=== PATIENT | female | born 1950 | race Caucasian/White ===

== ENCOUNTER 2017-02-16 16:48 | Emergency (ER) | payer BC ==
[~2017-02-16] VITALS: Ht 154.9 cm; Wt 63.6 kg
[2017-02-16] MEDS ORDERED: methylPREDNISolone INJ 125 MG/2 ML VIAL (J2930) IV ONE (17:00)
[2017-02-16] MEDS ORDERED: BUPR10TASR PO ×2 (17:21)
[2017-02-16] MEDS ORDERED: zioptan OU (17:21)
[2017-02-16] MEDS ORDERED: VITA100L SL (17:21)
[2017-02-16] MEDS ORDERED: TRAZ50TA11 PO (17:21)
[2017-02-16] MEDS ORDERED: XIID5DRO OP (17:21)
[2017-02-16 20:21] VITALS: BP 129/81
== END 2017-02-16 20:37 | disposition home or self-care (01) ==
LOC: M ED 16:48
DX: R22.1 Localized swelling, mass and lump, neck (principal); T41.3X5A Adverse effect of local anesthetics, initial encounter; Z88.0 Allergy status to penicillin; Z88.4 Allergy status to anesthetic agent; Z88.8 Allergy status to other drugs, medicaments and biological substances; Z91.040 Latex allergy status

== ENCOUNTER → 2017-05-20 | Outpatient (REF) | payer BC | LOC: M LAB REF 09:37 | DX: N39.0 Urinary tract infection, site not specified (principal) | CPT/HCPCS: 87086 ==

== ENCOUNTER → 2018-11-21 | Outpatient (CLI) | payer BC ==
[~2018-11-21] MED LIST: BUPR10TASR PO; TRAZ-252 PO; VITA100L SL; XIID5DRO OP; zioptan OU
[2018-11-21 16:47] LABS: BASO # 0.1 10^3/uL (0.0-0.2); BASO % 0.7 % (0.0-1.0); EOS # 0.1 10^3/uL (0.0-0.5); EOS % 1.1 % (0.0-3.0); HEMATOCRIT 39.7 % (36.0-47.0); HEMOGLOBIN 13.3 g/dl (12.0-15.5); LYMPH # 2.5 10^3/uL (1.5-5.0); LYMPH % 32.8 % (24.0-44.0); MEAN CORPUSCULAR HEMOGLOBIN 32.4 pg (27.0-33.0); MEAN CORPUSCULAR HGB CONC 33.5 g/dl (32.0-36.5); MEAN CORPUSCULAR VOLUME 96.8 fl (80.0-96.0); MONO # 0.6 10^3/uL (0.0-0.8); MONO % 7.8 % (0.0-5.0); NEUTROPHILS # 4.3 10^3/uL (1.5-8.5); NEUTROPHILS % 57.3 % (36.0-66.0); PLATELET COUNT, AUTOMATED 355 10^3/uL (150-450); WHITE BLOOD COUNT 7.5 10^3/uL (4.0-10.0)
[2018-11-21 17:16] LABS: ALT/SGPT 35 U/L (12-78); BILIRUBIN,TOTAL 0.5 MG/DL (0.2-1.0); BLOOD UREA NITROGEN 10 MG/DL (7-18); C REACTIVE PROTEIN QUANTITATIV 0.42 MG/DL (0.00-0.30); CALCIUM LEVEL 9.8 MG/DL (8.8-10.2); CARBON DIOXIDE LEVEL 27 MEQ/L (21-32); CHLORIDE LEVEL 103 MEQ/L (98-107); CREATININE FOR GFR 0.84 MG/DL (0.55-1.30); GLOMERULAR FILTRATION RATE > 60.0 (>45); GLUCOSE, FASTING 88 MG/DL (70-100); POTASSIUM SERUM 4.1 MEQ/L (3.5-5.1); RHEUMATOID FACTOR QUANT < 10.0 IU/ML (<15.0); SODIUM LEVEL 141 MEQ/L (136-145); TOTAL PROTEIN 7.1 GM/DL (6.4-8.2)
[2018-11-21 17:53] LABS: ERYTHROCYTE SEDIMENTATION RATE 18 mm/hr (0-30)
--- NOTE | 2018-11-22 08:23 | REP ---
BILATERAL HAND SERIES: Four views of each hand performed. No acute fracture or dislocation is seen. On the left, there is moderate narrowing with subchondral sclerosis at the joint between the scaphoid and adjacent trapezium and trapezoid bones. There is mild narrowing and spurring at the joint between the trapezium and base of 1st metacarpal with subchondral sclerosis as well. There is mild diffuse narrowing of the proximal and distal interphalangeal joints. On the right, there is moderate narrowing with subchondral sclerosis at the joint between the scaphoid and adjacent trapezium and trapezoid bones. There is mild diffuse narrowing of the 2nd through 5th distal interphalangeal joints. IMPRESSION: Relatively mild arthritic changes, as above. Electronically Signed by Dale Rodriguez MD 11/23/2018 10:45 A
--- NOTE | 2018-11-22 08:26 | REP ---
BILATERAL FEET: Four views of each foot performed. No acute fracture or dislocation is seen. On the right as well as on the left, there is mild narrowing, subchondral sclerosis, and spurring at the joint between the sesamoid bones and adjacent distal 1st metatarsal. Mild joint space narrowing and subchondral sclerosis is seen symmetrically at the 1st metatarsophalangeal joint. There appears to be an old fracture at the tip of the lateral malleolus on the left. Very small dorsal navicular spurs are seen bilaterally. There is mild narrowing of the 2nd through 5th proximal and distal interphalangeal joints. IMPRESSION: Mild bilateral degenerative changes as above. Electronically Signed by Dale Rodriguez MD 11/23/2018 10:46 A
== END ==
LOC: M LAB 15:26
PROVIDERS: ATTEND Internal Medicine Rheumatology
DX: M19.041 Primary osteoarthritis, right hand (principal); M19.042 Primary osteoarthritis, left hand; M19.071 Primary osteoarthritis, right ankle and foot; M19.072 Primary osteoarthritis, left ankle and foot

== ENCOUNTER → 2018-11-25 | Outpatient (CLI) | payer BC ==
[2018-11-29 00:06] LABS: ANA (HEP2) Negative (.); CYCLIC CITRULLINATED PEPTIDE 76 units (0-19)
== END ==
LOC: M LAB 16:48
PROVIDERS: ATTEND Internal Medicine Rheumatology
DX: R76.8 Other specified abnormal immunological findings in serum (principal)

== ENCOUNTER → 2018-11-28 | Outpatient (REF) | payer BC ==
[2018-11-28 20:28] LABS: APPEARANCE, URINE MANUAL HAZY (CLEAR); BILIRUBIN, URINE MANUAL OBSCURED (NEGATIVE); BLOOD URINE MANUAL OBSCURED (NEGATIVE); COLOR, URINE MANUAL ORANGE (YELLOW); GLUCOSE, URINE (UA) MANUAL OBSCURED mg/dL (NEGATIVE); KETONE, URINE MANUAL OBSCURED mg/dL (NEGATIVE); LEUKOCYTE ESTERASE, URINE MAN OBSCURED (NEGATIVE); NITRITE, URINE MANUAL OBSCURED (NEGATIVE); PH,URINE MAN OBSCURED UNITS (5.0 - 7.0); PROTEIN, URINE MANUAL OBSCURED mg/dL (NEGATIVE); UROBILINOGEN, URINE MANUAL OBSCURED mg/dl (NORMAL)
[2018-11-28 20:31] LABS: RBC, URINE NONE SEEN /hpf (0-3); SQUAMOUS EPITHELIAL CELL URINE NONE SEEN /hpf (SMALL AMT)
[2018-11-28 20:32] LABS: BACTERIA, URINE SMALL AMOUNT; CALCIUM OXALATE CRYSTALS,URINE LARGE AMOUNT /hpf; HYALINE CAST, URINE NONE SEEN /lpf (0-1); URIC ACID CRYSTALS, URINE SMALL AMOUNT /hpf
== END ==
LOC: M LAB REF 19:14
PROVIDERS: ATTEND Physician Assistant Medical
DX: N39.0 Urinary tract infection, site not specified (principal)

== ENCOUNTER → 2019-01-13 | Outpatient (CLI) | payer BC ==
--- NOTE | 2019-01-13 14:24 | REP ---
Clinical: Trauma. Technique: Frontal view of the chest with multiple views of the right hemithorax. Findings: Frontal view of the chest demonstrates no acute cardiopulmonary process. Multiple views of the right hemithorax demonstrates no obvious acute rib fracture or pathology. Impression: Normal right rib series Electronically Signed by Landry Mckeon MD 01/13/2019 02:16 P
== END ==
LOC: M RAD 13:44
PROVIDERS: ATTEND Family Medicine
DX: R07.9 Chest pain, unspecified (principal)

== ENCOUNTER → 2019-03-06 | Outpatient (CLI) | payer BC ==
[2019-03-06 14:04] LABS: HEMATOCRIT 41.5 % (36.0-47.0); HEMOGLOBIN 13.8 g/dl (12.0-15.5); MEAN CORPUSCULAR HEMOGLOBIN 33.3 pg (27.0-33.0); MEAN CORPUSCULAR HGB CONC 33.3 g/dl (32.0-36.5); MEAN CORPUSCULAR VOLUME 100.2 fl (80.0-96.0); PLATELET COUNT, AUTOMATED 356 10^3/uL (150-450); RED BLOOD COUNT 4.14 10^6/uL (4.00-5.40); WHITE BLOOD COUNT 7.1 10^3/uL (4.0-10.0)
[2019-03-06 14:35] LABS: ALBUMIN 3.7 GM/DL (3.2-5.2); ALT/SGPT 24 U/L (12-78); BILIRUBIN,TOTAL 0.5 MG/DL (0.2-1.0); BLOOD UREA NITROGEN 14 MG/DL (7-18); CALCIUM LEVEL 9.2 MG/DL (8.8-10.2); CARBON DIOXIDE LEVEL 27 MEQ/L (21-32); CHLORIDE LEVEL 108 MEQ/L (98-107); CHOLESTEROL LEVEL 238 MG/DL (<200); CHOLESTEROL RISK RATIO 4.175 (<5); CREATININE FOR GFR 0.84 MG/DL (0.55-1.30); FREE T3 2.8 PG/ML (2.2-4.0); FREE T4 1.15 NG/DL (0.76-1.46); GLOMERULAR FILTRATION RATE > 60.0 (>45); GLUCOSE, FASTING 99 MG/DL (70-100); HDL CHOLESTEROL 57 MG/DL (>40); LDL CHOLESTEROL 158 MG/DL (<100); NON-HDL-C 181 MG/DL; POTASSIUM SERUM 4.1 MEQ/L (3.5-5.1); SODIUM LEVEL 141 MEQ/L (136-145); TRIGLYCERIDES LEVEL 114 MG/DL (<150)
== END ==
LOC: M LAB 13:05
PROVIDERS: ATTEND Family Medicine
DX: Z13.220 Encounter for screening for lipoid disorders (principal); E03.9 Hypothyroidism, unspecified; K90.0 Celiac disease

== ENCOUNTER 2020-05-01 15:25 | Emergency (ER) | payer BC ==
[~2020-05-01] VITALS: Ht 152.4 cm; Wt 72.4 kg
--- OUTSIDE RECORDS SUMMARY | 2020-05-01 15:31 | CCD ---
Author Author [facility] Organization [facility] Address Unknown Phone Unavailable Support Name Relationship Address Phone SELF EMPLOYED [place] [address] UE Next Of Kin Unknown Unavailable [place] Next Of Kin [address] [place], [place] [id number] Re-disclosure Warning The records that you are about to access may contain information from federally-assisted alcohol or drug abuse programs. If such information is present, then the following federally mandated warning applies: This information has been disclosed to you from records protected by federal confidentiality rules (42 CFR part 2). The federal rules prohibit you from making any further disclosure of this information unless further disclosure is expressly permitted by the written consent of the person to whom it pertains or as otherwise permitted by 42 CFR part 2. A general authorization for the release of medical or other information is NOT sufficient for this purpose. The Federal rules restrict any use of the information to criminally investigate or prosecute any alcohol or drug abuse patient.The records that you are about to access may contain highly sensitive health information, the redisclosure of which is protected by Article 27-F of the [facility] Public Health law. If you continue you may have access to information: Regarding HIV / AIDS; Provided by facilities licensed or operated by the [facility] Office of Mental Health; or Provided by the [facility] Office for People With Developmental Disabilities. If such information is present, then the following [facility] mandated warning applies: This information has been disclosed to you from confidential records which are protected by state law. State law prohibits you from making any further disclosure of this information without the specific written consent of the person to whom it pertains, or as otherwise permitted by law. Any unauthorized further disclosure in violation of state law may result in a fine or senior living sentence or both. A general authorization for the release of medical or other information is NOT sufficient authorization for further disc losure. Family History Family Member Name Family Member Gender Family Member Status Date o f Status Description Data Source(s) Unknown Unknown Problem [facility] ([facility]) Medications Medication Brand Name Start Date Product Form Dose Route Admi nistrative Instructions Pharmacy Instructions Status Indications Reaction Description Data Source(s) Prazosin 1 MG Oral Capsule prazosin (MINIPRESS) 1 MG c apsule prazosin (MINIPRESS) 1 MG capsule 10/14/2018 12:00:00 AM EDT 3 mg Oral active Take 3 capsules by mouth [facility] Insurance Providers Payer name Policy type / Coverage type Policy ID Covered green party ID Covered green party's relationship to sylvester Policy Sylvester Plan Information [employer] [place]/307 [id number] FR2 [id number] EXCELLUS BCBS B [id number] P YND [id number] EXCELLUS BCBS B [id number] P YND [id number] EXCELLUS H [id number] Unkn [id number] EXCELLUS H [id number] [facility] [id number] BCBS/Excellus Commercial [id number] YN [id number] [employer] [place] PPO 302/307 [id number] FR2 [id number] [place] [place] 302/307 [id number] FR2 [id number] [facility] UNAVAILABLE UNAVAILABLE EXCELLUS BCBS B [id number] S [id number] EXCELLUS BCBS B [id number] S YNS [id number] Blue Cross Blue Shield P [id number] OTHER [id number] Blue Cross Blue Shield P [id number] SELF [id number] EXCELLUS BCBS P [id number] P [id number] [id number] EXCELLUS BCBS P [id number] S [id number] [id number] [employer] [place] P[place] 302/307 [id number] FR2 [id number] Results ID Date Data Source [id number] 10/31/2019 12:00:00 AM EDT [facility] Jose Davila MD Patient Name: SHON CABRERA [facility] Date of : 1950 Date of Exam: 10/31/2019VetoMAKENZIE [id number]#: Fax: [phone] EXAM: KNEE RIGHT (COMPLETE) X-RAYCLINICAL INFORMATION: Pain.Five views. These images were obtained using digital radiography.Comparison right knee AP and lateral views of 03/24/2012.The compartments are symmetric and well maintained. There is no acutefracture or destructive osseous lesion.No significant change compared to the prior exam.TIM Butler/Ana you for referring BRIELLE CABRERA to our office. Electronically Signed - ELLIOTT CALVIN DO 11/02/19 11:33 Name Value Range Interpretation Code Description Data Lavern rce(s) Supporting Document(s) ID Date Data Source [id number] 10/31/2019 12:00:00 AM EDT [facility] Jose Davila MD Patient Name: SHON CABRERA [facility] Date of : 1950 Date of Exam: 10/31/2019WaterMAKENZIE kuhn [id number]#: Fax: [phone] EXAM: KNEE LEFT (COMPLETE) X-RAYCLINICAL INFORMATION: Chronic pain. No trauma.Comparison, standing bilateral AP views of the knees 03/24/2012.Five views. These images were obtained using digital radiography.There is minimal tricompartmental marginal osteophytosis. The compartmentsare symmetric and well maintained. There is no acute fracture,dislocation, or subluxation.IMPRESSION:Minimal degenerative changes.TIM Butler/Ana you for referring BRIELLE CABRERA to our office. Electronically Signed - ELLIOTT CALVIN DO 11/02/19 11:33 Name Value Range Interpretation Code Description Data Lavern rce(s) Supporting Document(s) ID Date Data Source [id number] 10/31/2019 12:00:00 AM EDT [facility] Lakeshia Bassett MD Patient Name: FLOR CABRERA [place] Date of : 1950te 2c Date of Exam: 10/31/2019MAKENZIE BANEGAS [id number]#: Fax: [phone] EXAM: MAMMO SCREENING WITH CADCLINICAL INFORMATION: Screening.Based on the personal and family history information your patient suppliedat the time of imaging, her lifetime risk of breast cancer estimated by theTyrer-Cuzick model is 2.9%. Given that this patient has less than 20% TCrisk score, no further medical management is currently recommended at thistime.Digital screening (2D) mammography was performed bilaterally in the CC andMLO projections. Additionally, breast tomosynthesis (3D mammography) wasperformed bilaterally in the CC and MLO projections. Today's exam wascompared to the prior exam(s).By history, the patient has no complaints of a palpable breast abnormalityor other significant breast complaints.The patient states last clinical breast exam was in November of 2018.The breasts are unchanged in size and shape. There are no deyanira-soft tissuedensities or spiculated masses. There is no internal architecturaldistortion. There are no suspicious deyanira-calcific clusters. Skinthickening or nipple retraction is not present.The Volpara volumetric breast density category is B, there are scatteredareas of fibroglandular density.IMPRESSION:BI-RADS Category 1 - Negative Mammogram. Stable mammogram. There is noevidence of malignant alteration of the breasts. Followup examinationrecommended in one year.This mammogram was read with the assistance of [employer], an FDAapproved computer aided detection system for mammography.Negative x-ray reports should not delay surgical consultation if a dominantor clinically suspicious mass is present.Not all breast cancers can be identified by mammography. Therefore, werecommend that you continue to perform regular breast self-examination andphysical examination and then promptly contact your physician of anyconcerns or changes.Adenosis and dense breasts may obscure an underlying neoplasm.TIM Butler/Ana you for referring BRIELLE CABRERA to our office. Electronically Signed - ELLIOTT CALVIN DO 11/08/19 15:02 Name Value Range Interpretation Code Description Data Lavern rce(s) Supporting Document(s) Procedure Patient Treatment Plan of Care Planned Activity Planned Date Details Description Data Source (s) Prazosin 1 MG Oral Capsule 10/14/2018 12:00:00 AM [facility]
[2020-05-01] MEDS ORDERED: SYNT50TA (15:53)
[2020-05-01] MEDS ORDERED: TRAM50TA2 (15:53)
[2020-05-01] MEDS ORDERED: DERM1TAB2 PO (15:53)
[2020-05-01] MEDS ORDERED: MULTTAB61 PO (15:53)
[2020-05-01] MEDS ORDERED: NS 1,000 ML IV ONE (16:15)
--- OUTSIDE RECORDS SUMMARY | 2020-05-01 17:16 | CCD ---
Author Author [facility] Organization [facility] Address Unknown Phone Unavailable Support Name Relationship Address Phone SELF EMPLOYED [place] [address] UE Next Of Kin Unknown Unavailable CL[place] GARCIA Next Of Kin [address] [place], [place] [phone] Re-disclosure Warning The records that you are [...] is protected by Article 27-F of the [facility] Public Health law. If you continue you may have access to information: Regarding HIV / AIDS; Provided by facilities licensed or operated by the [facility] Office of Mental Health; or Provided by the [facility] Office for People With Developmental Disabilities. If such information is present, then the following [facility] mandated warning applies: This information has [...] law may result in a fine or long term sentence or both. A general authorization for [...] Oral active Take 3 capsules by mouth [facility] Insurance Providers Payer name Policy type / Coverage type Policy ID Covered green party ID Covered green party's relationship to sylvester Policy Sylvester Plan Information [employer] [place] 302/307 [id number] FR2 [id number] EXCELLUS BCBS B [id number] P YND [id number] EXCELLUS BCBS B [id number] P YND [id number] EXCELLUS H [id number] Unkn [id number] EXCELLUS H [id number] [facility] [id number] BCBS/Excell[employer] Commercial [id number] YN [id number] [place] PPO 302/307 [id number] FR2 [id number] [employer] [place] 302/307 [id number] FR2 [id number] [facility] UNAVAILABLE UNAVAILABLE EXCELLUS BCBS B [id number] S [id number] [id number] EXCELLUS BCBS B [id number] S YNS [id number] Blue Cross Blue Shield P [id number] OTHER [id number] Blue Cross Blue Shield P [id number] SELF [id number] EXCELLUS BCBS P [id number] P YND [id number] EXCELLUS BCBS P [id number] S [id number] [id number] [employer] [place] PPO 302/307 [id number] FR2 [id number] Results ID Date Data Source [id number] 10/31/2019 12:00:00 AM EDT [facility] Jose Davila MD Patient Name: SHON CABRERA [facility] Date of : 1950 Date of Exam: 10/31/2019VetoMAKENZIE [id number]#: Fax: [phone] EXAM: KNEE RIGHT (COMPLETE) X-RAYCLINICAL [...] rce(s) Supporting Document(s) ID Date Data Source [id number] 10/31/2019 12:00:00 AM EDT [facility] Jose Davila MD Patient Name: SHON CABRERA [facility] Date of : 1950 Date of Exam: 10/31/2019WaterMAKENZIE kuhn [id number]#: Fax: [phone] EXAM: KNEE LEFT (COMPLETE) X-RAYCLINICAL [...] rce(s) Supporting Document(s) ID Date Data Source [id number] 10/31/2019 12:00:00 AM EDT [facility] Lakeshia Bassett MD Patient Name: FLOR CABRERA [place] Date of : 1950te 2c Date of Exam: 10/31/2019MAKENZIE BANEGAS [id number]#: Fax: [phone] EXAM: MAMMO SCREENING WITH CADCLINICAL [...] mammogram was read with the assistance of [employer], an FDAapproved computer aided detection system for [...] 1 MG Oral Capsule 10/14/2018 12:00:00 AM [facility]
[2020-05-01 17:18] LABS: BASO % 0.3 % (0.0-1.0); EOS # 0.1 10^3/uL (0.0-0.5); EOS % 0.4 % (0.0-3.0); HEMATOCRIT 46.9 % (36.0-47.0); HEMOGLOBIN 15.3 g/dl (12.0-15.5); MEAN CORPUSCULAR HEMOGLOBIN 31.7 pg (27.0-33.0); MEAN CORPUSCULAR HGB CONC 32.6 g/dl (32.0-36.5); MEAN CORPUSCULAR VOLUME 97.3 fl (80.0-96.0); MONO # 0.7 10^3/uL (0.0-0.8); MONO % 5.6 % (2.0-8.0); NEUTROPHILS % 70.2 % (36.0-66.0); PLATELET COUNT, AUTOMATED 407 10^3/uL (150-450); RED BLOOD COUNT 4.82 10^6/uL (4.00-5.40); WHITE BLOOD COUNT 12.9 10^3/uL (4.0-10.0)
[2020-05-01 17:39] LABS: ALBUMIN 4.2 GM/DL (3.2-5.2); BILIRUBIN,DIRECT 0.2 MG/DL (0.0-0.2); BILIRUBIN,TOTAL 0.7 MG/DL (0.2-1.0); TOTAL PROTEIN 8.4 GM/DL (6.4-8.2)
[2020-05-01] MEDS ORDERED: ISOVUE-370 76% 100ML VIAL As Ordered ONE (17:39)
--- NOTE | 2020-05-01 18:14 | REPVR ---
PROCEDURE INFORMATION: Exam: CT Abdomen And Pelvis With Contrast Exam date and time: 05/01/2020 5:48 PM Age: 69 years old Clinical indication: Abdominal pain; Localized; Left; Additional info: Luq, llq pain diarrhea, severe cramping TECHNIQUE: Imaging protocol: Computed tomography of the abdomen and pelvis with contrast. Radiation optimization: All CT scans at this facility use at least one of these dose optimization techniques: automated exposure control; mA and/or kV adjustment per patient size (includes targeted exams where dose is matched to clinical indication); or iterative reconstruction. Contrast material: ISOVUE 370; Contrast volume: 100 ml; Contrast route: INTRAVENOUS (IV); COMPARISON: No relevant prior studies available. FINDINGS: Liver: There are cysts in the liver measuring up to 2 cm located in segment 2 of the left lobe. No complex features demonstrated. No follow-up suggested. Liver otherwise unremarkable. Gallbladder and bile ducts: Normal. No calcified stones. No ductal dilation. Pancreas: Normal. No ductal dilation. Spleen: Normal. No splenomegaly. Adrenal glands: Normal. No mass. Kidneys and ureters: Normal. No hydronephrosis. Stomach and bowel: Inflammation demonstrated along the lateral margin of the ascending colon likely representing right colonic uncomplicated diverticulitis. A 2nd focus of acute or subacute inflammation is demonstrated at the junction of the distal descending and sigmoid colon consistent with localized uncomplicated diverticulitis. No drainable abscess demonstrated in either location. Appendix: No evidence of appendicitis. Intraperitoneal space: Unremarkable. No free air. No significant fluid collection. Vasculature: The aortoiliac vessels demonstrate mild atherosclerotic calcification. Lymph nodes: Unremarkable. No enlarged lymph nodes. Urinary bladder: Unremarkable as visualized. Reproductive: Unremarkable as visualized. Bones/joints: Age indeterminate compression deformity at L1. Mild central spinal stenosis L3-L4, severe central spinal stenosis L4-L5. Dextroscoliosis. Soft tissues: Unremarkable. IMPRESSION: 1. There are cysts in the liver measuring up to 2 cm located in segment 2 of the left lobe. No complex features demonstrated. No follow-up suggested. Liver otherwise unremarkable. 2. Inflammation demonstrated along the lateral margin of the ascending colon likely representing right colonic uncomplicated diverticulitis. A 2nd focus of acute or subacute inflammation is demonstrated at the junction of the distal descending and sigmoid colon consistent with localized uncomplicated diverticulitis. No drainable abscess demonstrated in either location. Electronically signed by: Charanjit Bangura On 05/01/2020 18:14:25 PM
[2020-05-01] MEDS ORDERED: CIPR-249 PO (18:23)
[2020-05-01] MEDS ORDERED: FLAG500T PO (18:23)
[2020-05-01 18:30] VITALS: BP 149/82
== END 2020-05-01 18:41 | disposition home or self-care (01) ==
LOC: M ED 15:25
DX: K57.32 Diverticulitis of large intestine without perforation or abscess without bleeding (principal); K76.89 Other specified diseases of liver; E03.9 Hypothyroidism, unspecified; M79.7 Fibromyalgia; H10.829 Rosacea conjunctivitis, unspecified eye; K90.0 Celiac disease; Z86.010 Personal history of colon polyps; Z79.899 Other long term (current) drug therapy; Z88.0 Allergy status to penicillin; Z88.8 Allergy status to other drugs, medicaments and biological substances; Z91.040 Latex allergy status
CPT/HCPCS: 74177; 80047; 80076; 83605; 83690; 85025; 87040; 96360; 99284; Q9967

== ENCOUNTER → 2020-07-08 | Outpatient (CLI) | payer BC ==
[~2020-07-08] MED LIST changes: +CIPR-249 PO; +DERM1TAB2 PO; +FLAG500T PO; +MULTTAB61 PO; +SYNT50TA; +TRAM50TA2
--- NOTE | 2020-07-08 21:50 | REPVR ---
PROCEDURE INFORMATION: Exam: MR Lumbar Spine Without Contrast Exam date and time: 07/08/2020 7:39 PM Age: 70 years old Clinical indication: Pain; Lumbago with sciatica; Left; Additional info: Radiculopathy sciatic lesion of nerve TECHNIQUE: Imaging protocol: Multiplanar magnetic resonance images of the lumbar spine without intravenous contrast. COMPARISON: No relevant prior studies available. FINDINGS: Vertebrae: T1 weighted images demonstrate mottled decreased signal throughout the vertebrae, findings which can be seen in association with chronic anemia or other myeloproliferative abnormality. This should be correlated with clinical evaluation. Prominent Schmorl's node indents the inferior endplate of L1. Abnormal signal demonstrated in the mid and posterior aspect of L1 may indicate marrow edema secondary to a acute or subacute injury. Marrow space edema demonstrated in the posterosuperior aspect of L2 consistent with acute or subacute injury. Spinal cord: Normal signal. No cord compression. L1-L2: Diffusely bulging annulus L1-L2. No spinal stenosis. Moderate bilateral facet joint arthropathy with fluid in the right facet joint may indicate synovitis. L2-L3: Mild annular bulge L2-L3. No spinal stenosis. Mild bilateral facet joint arthropathy. L3-L4: Diffusely bulging annulus L3-L4 with mild flattening of the thecal sac. No significant spinal stenosis. Moderate bilateral facet joint arthropathy. L4-L5: There is a moderate to severe degenerative central spinal stenosis at L4-L5 secondary to diffuse annular bulging, thickened ligamentum flavum with marked bilateral facet joint arthropathy. L5-S1: Bulging annulus L5-S1. No significant spinal stenosis. Severe bilateral facet joint arthropathy. Soft tissues: Unremarkable. IMPRESSION: 1. T1 weighted images demonstrate mottled decreased signal throughout the vertebrae, findings which can be seen in association with chronic anemia or other myeloproliferative abnormality. This should be correlated with clinical evaluation. 2. Prominent Schmorl's node indents the inferior endplate of L1. Abnormal signal demonstrated in the mid and posterior aspect of L1 may indicate marrow edema secondary to a acute or subacute injury. 3. Marrow space edema demonstrated in the posterosuperior aspect of L2 consistent with acute or subacute injury. 4. Discogenic degenerative changes from L1-L2 to L5-S1 with a moderate to severe central spinal stenosis at L4-L5. Multilevel bilateral facet joint arthropathy. 5. Possible right-sided facet synovitis at L1-L2. Electronically signed by: Charanjit Bangura On 07/08/2020 21:50:41 PM
--- NOTE | 2020-07-09 09:24 | REP ---
INDICATION: RADICULOPATHY SCIATIC LESION OF NERVE. Attention left piriformis muscle. COMPARISON: Comparison is made with CT imaging from May 01, 2020. TECHNIQUE: Axial, sagittal, and coronal imaging planes utilized. T1 and T2 weighted sequences are included with and without fat saturation.. FINDINGS: Cortical and medullary bone signal intensity are normal in the bony pelvis, sacrum, and proximal femurs. There is degenerative disc disease at L4-5 and L5-S1 with disc space narrowing and some diffuse disc bulging. The SI joints are unremarkable. There is no evidence of sacroiliitis, erosive change, or ankylosis. No sacral destructive lesion is seen. No coccygeal displacement or abnormality. The pre sacral and the dorsal retro sacral soft tissues are unremarkable. The uterus is normal in size slightly retro vertically. There are nabothian cysts in the cervix. No ovarian abnormality is observed on either side. Normal appendix is seen in the right lower quadrant. No inflammatory changes are seen adjacent to bowel loops as visualized today. There is mild sigmoid colon diverticulosis. No free fluid pelvic mass or adenopathy is appreciated. The piriformis muscles are normal in size, distribution, and signal intensity. Sciatic nerves intrapelvic and extrapelvic soft tissues are otherwise unremarkable. Are normal and symmetric as visualized. No evidence of abnormal spurring or other mass effect to suggest compression or displacement. IMPRESSION: Mild sigmoid colon diverticulosis. Otherwise unremarkable pelvic MRI study. <Electronically signed by Francisco Bolton > 07/09/20 [id number]
== END ==
LOC: M RAD 18:37
PROVIDERS: ATTEND Family Medicine
DX: G57.00 Lesion of sciatic nerve, unspecified lower limb (principal); M48.07 Spinal stenosis, lumbosacral region; M51.46 Schmorl's nodes, lumbar region

== ENCOUNTER → 2020-07-10 | Outpatient (CLI) | payer BC ==
[2020-07-10 11:50] LABS: HEMATOCRIT 42.4 % (36.0-47.0); HEMOGLOBIN 14.2 g/dl (12.0-15.5); MEAN CORPUSCULAR HEMOGLOBIN 32.5 pg (27.0-33.0); MEAN CORPUSCULAR HGB CONC 33.5 g/dl (32.0-36.5); PLATELET COUNT, AUTOMATED 335 10^3/uL (150-450); RED BLOOD COUNT 4.37 10^6/uL (4.00-5.40); WHITE BLOOD COUNT 6.6 10^3/uL (4.0-10.0)
[2020-07-10 12:22] LABS: BLOOD UREA NITROGEN 15 MG/DL (7-18); CALCIUM LEVEL 9.7 MG/DL (8.8-10.2); CARBON DIOXIDE LEVEL 29 MEQ/L (21-32); CHLORIDE LEVEL 107 MEQ/L (98-107); GLOMERULAR FILTRATION RATE > 60.0 (>39); GLUCOSE, FASTING 91 MG/DL (70-100); IRON (FE) 82 UG/DL (50-170); PERCENT SATURATION 35.8 % (13.2-45.0); POTASSIUM SERUM 4.1 MEQ/L (3.5-5.1); SODIUM LEVEL 141 MEQ/L (136-145); TOTAL IRON BINDING CAPACITY 229 UG/DL (250-450)
[2020-07-10 12:25] LABS: PTH INTACT 53.1 PG/ML (18.5-88.0)
[2020-07-10 12:26] LABS: FOLATE > 24.0 NG/ML; VITAMIN B12 LEVEL 680 PG/ML
[2020-07-11 18:07] LABS: ANTI-MITOCHONDRIAL ANTIBODY <20.0 Units (0.0-20.0); TISSUE TRANSGLUTAMINASE IgA <2 U/mL (0-3); UNITSIGA FOR GLIADIN IGA 7 units (0-19); UNITSIGG FOR GLIADIN IGG 6 units (0-19)
== END ==
LOC: M LAB 10:59
DX: R94.5 Abnormal results of liver function studies (principal); K90.0 Celiac disease; E83.52 Hypercalcemia

== ENCOUNTER → 2020-07-10 | Outpatient (CLI) | payer BC ==
[2020-07-10 11:50] LABS: HEMATOCRIT 42.6 % (36.0-47.0); HEMOGLOBIN 14.3 g/dl (12.0-15.5); MEAN CORPUSCULAR HEMOGLOBIN 32.4 pg (27.0-33.0); MEAN CORPUSCULAR HGB CONC 33.6 g/dl (32.0-36.5); MEAN CORPUSCULAR VOLUME 96.4 fl (80.0-96.0); PLATELET COUNT, AUTOMATED 347 10^3/uL (150-450); RED BLOOD COUNT 4.42 10^6/uL (4.00-5.40); WHITE BLOOD COUNT 6.7 10^3/uL (4.0-10.0)
[2020-07-10 12:32] LABS: ALBUMIN 3.9 GM/DL (3.2-5.2); ALT/SGPT 22 U/L (12-78); BILIRUBIN,TOTAL 0.4 MG/DL (0.2-1.0); BLOOD UREA NITROGEN 15 MG/DL (7-18); CALCIUM LEVEL 9.7 MG/DL (8.8-10.2); CARBON DIOXIDE LEVEL 29 MEQ/L (21-32); CHLORIDE LEVEL 107 MEQ/L (98-107); CHOLESTEROL LEVEL 241 MG/DL (<200); CHOLESTEROL RISK RATIO 4.016 (<5); CREATININE FOR GFR 0.66 MG/DL (0.55-1.30); FREE T3 2.8 PG/ML (2.2-4.0); FREE T4 1.29 NG/DL (0.76-1.46); GLOMERULAR FILTRATION RATE > 60.0 (>39); GLUCOSE, FASTING 90 MG/DL (70-100); HDL CHOLESTEROL 60 MG/DL (>40); LDL CHOLESTEROL 164 MG/DL (<100); NON-HDL-C 181 MG/DL; SODIUM LEVEL 141 MEQ/L (136-145); TRIGLYCERIDES LEVEL 87 MG/DL (<150)
== END ==
LOC: M LAB 11:04
PROVIDERS: ATTEND Family Medicine
DX: E78.5 Hyperlipidemia, unspecified (principal)

== ENCOUNTER → 2020-11-04 | Outpatient (CLI) | payer BC ==
[2020-11-04 13:55] LABS: BASO % 0.5 % (0.0-1.0); EOS % 0.5 % (0.0-3.0); HEMATOCRIT 40.7 % (36.0-47.0); HEMOGLOBIN 13.6 g/dl (12.0-15.5); LYMPH # 2.9 10^3/uL (1.5-5.0); LYMPH % 37.9 % (24.0-44.0); MEAN CORPUSCULAR HEMOGLOBIN 32.2 pg (27.0-33.0); MEAN CORPUSCULAR HGB CONC 33.4 g/dl (32.0-36.5); MEAN CORPUSCULAR VOLUME 96.4 fl (80.0-96.0); MONO # 0.5 10^3/uL (0.0-0.8); MONO % 5.9 % (2.0-8.0); NEUTROPHILS # 4.2 10^3/uL (1.5-8.5); NEUTROPHILS % 55.1 % (36.0-66.0); PLATELET COUNT, AUTOMATED 333 10^3/uL (150-450); RED BLOOD COUNT 4.22 10^6/uL (4.00-5.40); WHITE BLOOD COUNT 7.6 10^3/uL (4.0-10.0)
[2020-11-04 14:23] LABS: ALBUMIN 3.7 GM/DL (3.2-5.2); ALT/SGPT 22 U/L (12-78); BILIRUBIN,TOTAL 0.6 MG/DL (0.2-1.0); BLOOD UREA NITROGEN 12 MG/DL (7-18); CALCIUM LEVEL 9.3 MG/DL (8.8-10.2); CARBON DIOXIDE LEVEL 29 MEQ/L (21-32); CHLORIDE LEVEL 106 MEQ/L (98-107); CHOLESTEROL LEVEL 242 MG/DL (<200); CHOLESTEROL RISK RATIO 3.226 (<5); CREATININE FOR GFR 0.66 MG/DL (0.55-1.30); GLOMERULAR FILTRATION RATE > 60.0 (>39); GLUCOSE, FASTING 87 MG/DL (70-100); HDL CHOLESTEROL 75 MG/DL (>40); LDL CHOLESTEROL 151 MG/DL (<100); MAGNESIUM LEVEL 2.1 MG/DL (1.8-2.4); NON-HDL-C 167 MG/DL; POTASSIUM SERUM 4.3 MEQ/L (3.5-5.1); SODIUM LEVEL 140 MEQ/L (136-145); TOTAL PROTEIN 6.9 GM/DL (6.4-8.2); TRIGLYCERIDES LEVEL 79 MG/DL (<150)
[2020-11-04 14:26] LABS: VITAMIN B12 LEVEL 579 PG/ML (247-911)
== END ==
LOC: M LAB 12:40
PROVIDERS: ATTEND Family Medicine
DX: K90.0 Celiac disease (principal); E78.2 Mixed hyperlipidemia

== ENCOUNTER → 2021-01-01 | Outpatient (CLI) | payer BC | LOC: M LABSMTC 10:09 | PROVIDERS: ATTEND Internal Medicine Gastroenterology | DX: Z01.812 Encounter for preprocedural laboratory examination (principal); Z20.822 Contact with and (suspected) exposure to COVID-19 ==

== ENCOUNTER → 2021-12-09 | Outpatient (REF) | payer BC | LOC: M LAB REF 12:10 | PROVIDERS: ATTEND Student in an Organized Health Care Education/Training Program | DX: R30.0 Dysuria (principal) ==

== ENCOUNTER → 2022-01-12 | Outpatient (CLI) | payer BC | LOC: M WHC 10:48 | PROVIDERS: ATTEND Family Medicine | DX: R10.2 Pelvic and perineal pain (principal); D25.9 Leiomyoma of uterus, unspecified ==

== ENCOUNTER → 2022-02-10 | Outpatient (CLI) | payer BC ==
[~2022-02-10] MED LIST changes: +GASTROGRAFIN SOLUTION 30ML As Ordered ONE; +ISOVUE-370 76% 100ML VIAL As Ordered ONE
== END ==
LOC: M RAD 13:58
PROVIDERS: ATTEND Internal Medicine Gastroenterology
DX: R10.2 Pelvic and perineal pain (principal); K76.89 Other specified diseases of liver; N20.0 Calculus of kidney; K57.90 Diverticulosis of intestine, part unspecified, without perforation or abscess without bleeding

== ENCOUNTER → 2022-11-20 | Outpatient (CLI) | payer BC ==
[~2022-11-20] MED LIST changes: -GASTROGRAFIN SOLUTION 30ML As Ordered ONE; -ISOVUE-370 76% 100ML VIAL As Ordered ONE
== END ==
LOC: M WHC 12:38
PROVIDERS: ATTEND Physician Assistant
DX: Z12.31 Encounter for screening mammogram for malignant neoplasm of breast (principal)

== ENCOUNTER 2023-02-08 08:24 | Emergency (ER) | payer BC ==
[~2023-02-08] VITALS: Ht 152.4 cm; Wt 65.7 kg
[2023-02-08] MEDS ORDERED: ESTR0.1C5 (08:37)
[2023-02-08] MEDS ORDERED: CEQU0.09 (08:37)
[2023-02-08] MEDS ORDERED: PERF3DRO (08:37)
[2023-02-08 11:53] VITALS: BP 153/77; TEMP 98; O2SAT 97
== END 2023-02-08 11:50 | disposition home or self-care (01) ==
LOC: M ED 08:24
DX: S50.12XA Contusion of left forearm, initial encounter (principal); W01.0XXA Fall on same level from slipping, tripping and stumbling without subsequent striking against object, initial encounter; E03.9 Hypothyroidism, unspecified; Y92.009 Unspecified place in unspecified non-institutional (private) residence as the place of occurrence of the external cause; Y93.89 Activity, other specified; Y99.9 Unspecified external cause status; Z88.0 Allergy status to penicillin; Z88.8 Allergy status to other drugs, medicaments and biological substances; Z91.040 Latex allergy status; Z79.810 Long term (current) use of selective estrogen receptor modulators (SERMs); Z79.899 Other long term (current) drug therapy

== ENCOUNTER → 2023-02-18 | Outpatient (CLI) | payer BC ==
[~2023-02-18] MED LIST changes: +CEQU0.09; +ESTR0.1C5; +PERF3DRO
== END ==
LOC: M RAD 14:59
PROVIDERS: ATTEND Physician Assistant
DX: M25.532 Pain in left wrist (principal); S52.502A Unspecified fracture of the lower end of left radius, initial encounter for closed fracture; X58.XXXA Exposure to other specified factors, initial encounter; Y92.9 Unspecified place or not applicable; Y93.9 Activity, unspecified; Y99.9 Unspecified external cause status

== ENCOUNTER → 2023-03-18 | Outpatient (CLI) | payer BC ==
[~2023-03-18] MED LIST changes: +B-12100021 PO; +FLOM0.4C39 PO; +MACR100C43 PO; +ONDA4TAB6 PO; +OXYB5TAB11 PO; +PERC5TAB12 PO; +PYRI1TAB5 PO
== END ==
LOC: M RAD 15:29
PROVIDERS: ATTEND Physician Assistant
DX: Z01.818 Encounter for other preprocedural examination (principal)

== ENCOUNTER → 2023-03-22 | Day surgery (SDC) | payer BC ==
[~2023-03-22] VITALS: Ht 154.9 cm; Wt 64.7 kg
[~2023-03-22] MED LIST changes: +CIPROFLOXACIN 400 MG in IV 1 EA IV ONE; +ISOVUE-300 61% 100ML VIAL As Ordered ONE; +LIDOCAINE 2% 100MG/5ML SDV (FOR ANES.) As Ordered ONE; +LR 1,000 ML IV SCH; +MIDAZOLAM INJ 2MG/2ML VIAL As Ordered ONE; +ONDANSETRON 4MG 2ML VIAL IV PRN; +dexmedeTOMIDine (4MCG/ML)200MCG/50ML BTL (PRECEDEX) As Ordered ONE; +ePHEDrine SULFATE 25 MG/5 ML(5MG/ML) SYRINGE As Ordered ONE; +fentaNYL 100 MCG/2 ML INJECTION As Ordered ONE; +fentaNYL 100 MCG/2 ML INJECTION IV PRN; +propofoL 200 MG/20 ML VIAL As Ordered ONE
[2023-03-22] MEDS: HYDROMORPHONE HCL 0.5 MG/ 0.5 ML SYRINGE IV PRN ×2 (12:35→12:50)
[2023-03-22] MEDS: oxyCODONE 5MG TAB PO PRN ×2 (12:36→13:09)
[2023-03-22 14:16] VITALS: BP 139/74; TEMP 98; O2SAT 100
== END | disposition home or self-care (01) ==
LOC: M SDC 09:15
PROVIDERS: ATTEND Urology
DX: N20.0 Calculus of kidney (principal); E03.9 Hypothyroidism, unspecified; M79.7 Fibromyalgia; Z79.899 Other long term (current) drug therapy; Z88.0 Allergy status to penicillin; Z91.040 Latex allergy status; Z88.8 Allergy status to other drugs, medicaments and biological substances
CPT/HCPCS: 52356; 76000; 82365; C1769; C2617; J0744; J1170; J2250; J2405; J3010; Q9967

== ENCOUNTER → 2023-04-19 | Outpatient (CLI) | payer BC ==
[~2023-04-19] MED LIST changes: -CIPROFLOXACIN 400 MG in IV 1 EA IV ONE; -ISOVUE-300 61% 100ML VIAL As Ordered ONE; -LIDOCAINE 2% 100MG/5ML SDV (FOR ANES.) As Ordered ONE; -LR 1,000 ML IV SCH; -MIDAZOLAM INJ 2MG/2ML VIAL As Ordered ONE; -ONDANSETRON 4MG 2ML VIAL IV PRN; -dexmedeTOMIDine (4MCG/ML)200MCG/50ML BTL (PRECEDEX) As Ordered ONE; -ePHEDrine SULFATE 25 MG/5 ML(5MG/ML) SYRINGE As Ordered ONE; -fentaNYL 100 MCG/2 ML INJECTION As Ordered ONE; -fentaNYL 100 MCG/2 ML INJECTION IV PRN; -propofoL 200 MG/20 ML VIAL As Ordered ONE
== END ==
LOC: M PLAIMG 14:50
PROVIDERS: ATTEND Physician Assistant
DX: M47.892 Other spondylosis, cervical region (principal); M48.02 Spinal stenosis, cervical region; M85.48 Solitary bone cyst, other site; R93.7 Abnormal findings on diagnostic imaging of other parts of musculoskeletal system

== ENCOUNTER → 2023-05-06 | Outpatient (CLI) | payer BC ==
[~2023-05-06] MED LIST changes: -OXYB5TAB11 PO; +OXYB5TAB14 PO; +PROHANCE 279.3MG/ML 15ML VIAL As Ordered ONE
== END ==
LOC: M PLARAD 04-30 07:35 → M RAD 15:46
PROVIDERS: ATTEND Physician Assistant
DX: M47.892 Other spondylosis, cervical region (principal)
CPT/HCPCS: 72156; A9576

== ENCOUNTER → 2023-06-29 | Outpatient (REF) | payer BC ==
[~2023-06-29] MED LIST changes: -PROHANCE 279.3MG/ML 15ML VIAL As Ordered ONE
[2023-06-29 21:56] LABS: APPEARANCE, URINE CLOUDY (CLEAR); BACTERIA, URINE AUTO 1+ (NEGATIVE); BILIRUBIN, URINE AUTO NEGATIVE (NEGATIVE); BLOOD, URINE BLOOD NEGATIVE (NEGATIVE); CALCIUM OXALATE CRYSTALS LARGE; COLOR, URINE YELLOW (YELLOW); GLUCOSE, URINE (UA) AUTO NEGATIVE (NEGATIVE); KETONE, URINE AUTO NEGATIVE (NEGATIVE); LEUKOCYTE ESTERASE, URINE AUTO 1+ (NEGATIVE); MUCUS, URINE SMALL (NEGATIVE); NITRITE, URINE AUTO NEGATIVE (NEGATIVE); PROTEIN, URINE AUTO NEGATIVE (NEGATIVE); RBC, URINE AUTO 5 /HPF (0-3); SPECIFIC GRAVITY URINE AUTO 1.027 (1.002-1.035); SQUAMOUS EPITHELIAL CELL UR AU 3 /HPF (0-6); WBC, URINE AUTO 29 /HPF (0-3)
== END ==
LOC: M LAB REF 21:04
PROVIDERS: ATTEND Physician Assistant Medical
DX: N39.0 Urinary tract infection, site not specified (principal)

== ENCOUNTER → 2023-10-05 | Outpatient (CLI) | payer BC, MEDICARE ==
[~2023-10-05] MED LIST changes: +ONDA-282 PO; -ONDA4TAB6 PO
[2023-10-05 16:51] LABS: BLOOD UREA NITROGEN 12 MG/DL (9-23); CREATININE FOR GFR 0.81 MG/DL (0.55-1.30); GLOMERULAR FILTRATION RATE > 60.0 (>39)
== END ==
LOC: M LAB 15:39
PROVIDERS: ATTEND Psychiatry & Neurology Neurology
DX: I10 Essential (primary) hypertension (principal)

== ENCOUNTER → 2023-10-05 | Outpatient (REF) | payer BC, MEDICARE ==
[2023-10-05 21:21] LABS: APPEARANCE, URINE CLOUDY (CLEAR); BACTERIA, URINE AUTO NEGATIVE (NEGATIVE); BILIRUBIN, URINE AUTO NEGATIVE (NEGATIVE); BLOOD, URINE BLOOD NEGATIVE (NEGATIVE); CALCIUM OXALATE CRYSTALS LARGE; COLOR, URINE AMBER (YELLOW); GLUCOSE, URINE (UA) AUTO NEGATIVE (NEGATIVE); KETONE, URINE AUTO NEGATIVE (NEGATIVE); LEUKOCYTE ESTERASE, URINE AUTO 2+ (NEGATIVE); MUCUS, URINE MODERATE (NEGATIVE); NITRITE, URINE AUTO NEGATIVE (NEGATIVE); PROTEIN, URINE AUTO 1+ mg/dL (NEGATIVE); RBC, URINE AUTO 76 /HPF (0-3); SPECIFIC GRAVITY URINE AUTO 1.029 (1.002-1.035); SQUAMOUS EPITHELIAL CELL UR AU 5 /HPF (0-6); UROBILINOGEN, URINE AUTO 0.2 mg/dL (0.0-2.0); WBC, URINE AUTO 93 /HPF (0-3)
== END ==
LOC: M LAB REF 21:04
PROVIDERS: ATTEND Physician Assistant Medical
DX: N39.0 Urinary tract infection, site not specified (principal)

== ENCOUNTER → 2023-10-28 | Outpatient (CLI) | payer BC, MEDICARE ==
[~2023-10-28] MED LIST changes: +PROHANCE 279.3MG/ML 15ML VIAL As Ordered ONE; +PROHANCE 279.3MG/ML 5ML VIAL As Ordered ONE
== END ==
LOC: M RAD 08:11
PROVIDERS: ATTEND Psychiatry & Neurology Neurology
DX: H81.4 Vertigo of central origin (principal); I63.09 Cerebral infarction due to thrombosis of other precerebral artery; G45.0 Vertebro-basilar artery syndrome; R26.81 Unsteadiness on feet
CPT/HCPCS: 70544; 70549; A9576

== ENCOUNTER → 2023-11-23 | Outpatient (CLI) | payer MEDICARE ==
[~2023-11-23] MED LIST changes: -PROHANCE 279.3MG/ML 15ML VIAL As Ordered ONE; -PROHANCE 279.3MG/ML 5ML VIAL As Ordered ONE
== END ==
LOC: M WHC 12:25
PROVIDERS: ATTEND Internal Medicine Gastroenterology
DX: Z13.820 Encounter for screening for osteoporosis (principal); M85.851 Other specified disorders of bone density and structure, right thigh; M85.852 Other specified disorders of bone density and structure, left thigh; M85.88 Other specified disorders of bone density and structure, other site

== ENCOUNTER → 2023-12-16 | Outpatient (CLI) | payer MEDICARE | LOC: M WHC 12:25 | PROVIDERS: ATTEND Family Medicine | DX: Z12.31 Encounter for screening mammogram for malignant neoplasm of breast (principal); R92.323 Mammographic fibroglandular density, bilateral breasts ==

== ENCOUNTER → 2024-03-10 | Outpatient (REF) | payer MEDICARE ==
[2024-03-10 18:25] LABS: AMORPHOUS SEDIMENT SMALL (NEGATIVE); APPEARANCE, URINE HAZY (CLEAR); BACTERIA, URINE AUTO NEGATIVE (NEGATIVE); BILIRUBIN, URINE AUTO NEGATIVE (NEGATIVE); BLOOD, URINE BLOOD NEGATIVE (NEGATIVE); CALCIUM OXALATE CRYSTALS MODERATE; COLOR, URINE YELLOW (YELLOW); GLUCOSE, URINE (UA) AUTO NEGATIVE (NEGATIVE); KETONE, URINE AUTO NEGATIVE (NEGATIVE); LEUKOCYTE ESTERASE, URINE AUTO TRACE (NEGATIVE); MUCUS, URINE SMALL (NEGATIVE); NITRITE, URINE AUTO NEGATIVE (NEGATIVE); PROTEIN, URINE AUTO NEGATIVE (NEGATIVE); RBC, URINE AUTO 3 /HPF (0-3); SPECIFIC GRAVITY URINE AUTO 1.019 (1.002-1.035); SQUAMOUS EPITHELIAL CELL UR AU 2 /HPF (0-6); UROBILINOGEN, URINE AUTO 0.2 mg/dL (0.0-2.0); WBC, URINE AUTO 15 /HPF (0-3)
== END ==
LOC: M LABSMT 15:24
PROVIDERS: ATTEND Nurse Practitioner Family
DX: N39.0 Urinary tract infection, site not specified (principal)

== ENCOUNTER → 2024-04-24 | Outpatient (CLI) | payer MEDICARE | LOC: M RAD 13:14 | PROVIDERS: ATTEND Nurse Practitioner Family | DX: N39.0 Urinary tract infection, site not specified (principal); N85.5 Inversion of uterus ==

== ENCOUNTER 2024-07-19 02:16 | Emergency (ER) | payer MEDICARE ==
[~2024-07-19] VITALS: Ht 152.4 cm; Wt 63.2 kg
[~2024-07-19 02:16] MED LIST changes: -FLOM0.4C39 PO; +LIFI1DRO4 OP; +TAMS-18 PO; -XIID5DRO OP
[2024-07-19] MEDS: KETOROLAC 30 MG/ML 1ML VIAL IV ONE (03:40)
[2024-07-19] MEDS: ONDANSETRON 4MG 2ML VIAL IV ONE (03:47)
[2024-07-19] MEDS: NS 500 ML IV ONE (03:47)
[2024-07-19] MEDS: ACETAMINOPHEN *IV* 1,000 MG in IV 1 EA IV ONE (03:52)
[2024-07-19 03:59] LABS: KETONE, URINE AUTO RFX NEGATIVE (NEGATIVE); MUCUS, URINE RFX SMALL (NEGATIVE); NITRITE, URINE AUTO RFX NEGATIVE (NEGATIVE); RBC, URINE AUTO RFX TNTC /HPF (0-3); SQUAM EPITHELIAL CELL UR AURFX 3 /HPF (0-6)
[2024-07-19 04:01] LABS: LEUKOCYTE ESTERASE UR AUTO RFX 1+ (NEGATIVE); WBC, URINE AUTO RFX 80 /HPF (0-3)
[2024-07-19 04:45] LABS: BILIRUBIN,TOTAL 0.5 MG/DL (0.3-1.2); CALCIUM LEVEL 9.6 MG/DL (8.3-10.6); CREATININE FOR GFR 0.95 MG/DL (0.55-1.30); GLOMERULAR FILTRATION RATE 62.9 (>39); POTASSIUM SERUM 3.4 MMOL/L (3.5-5.1); TOTAL PROTEIN 6.9 G/DL (5.7-8.2)
[2024-07-19 05:29] LABS: BASO % 0.2 % (0.0-1.0); EOS % 0.1 % (0.0-3.0); HEMATOCRIT 35.7 % (36.0-47.0); HEMOGLOBIN 12.2 g/dl (12.0-15.5); LYMPH # 0.9 10^3/uL (1.5-5.0); LYMPH % 10.6 % (24.0-44.0); MEAN CORPUSCULAR HEMOGLOBIN 33.1 pg (27.0-33.0); MEAN CORPUSCULAR HGB CONC 34.2 g/dl (32.0-36.5); MEAN CORPUSCULAR VOLUME 96.7 fl (80.0-96.0); MONO # 0.4 10^3/uL (0.0-0.8); MONO % 4.2 % (2.0-8.0); NEUTROPHILS # 7.1 10^3/uL (1.5-8.5); NEUTROPHILS % 84.7 % (36.0-66.0); PLATELET COUNT, AUTOMATED 287 10^3/uL (150-450); RED BLOOD COUNT 3.69 10^6/uL (4.00-5.40); WHITE BLOOD COUNT 8.4 10^3/uL (4.0-10.0)
[2024-07-19] MEDS: TAMSULOSIN 0.4 MG CAP PO ONE (05:29)
[2024-07-19] MEDS ORDERED: TAMS-18 PO (06:01)
[2024-07-19] MEDS ORDERED: ONDA-282 PO (06:01)
[2024-07-19] MEDS ORDERED: HYDR-3713 PO (06:01)
[2024-07-19] MEDS: oxyCODONE 5MG TAB PO ONE (06:02)
[2024-07-19 06:16] VITALS: BP 140/85; TEMP 97; O2SAT 97
== END 2024-07-19 06:18 | disposition home or self-care (01) ==
LOC: M ED 02:16
DX: N20.1 Calculus of ureter (principal); N13.30 Unspecified hydronephrosis; E03.9 Hypothyroidism, unspecified; Z87.442 Personal history of urinary calculi; Z88.0 Allergy status to penicillin; Z88.6 Allergy status to analgesic agent; Z88.4 Allergy status to anesthetic agent; Z91.040 Latex allergy status; Z79.83 Long term (current) use of bisphosphonates; Z79.899 Other long term (current) drug therapy
CPT/HCPCS: 74176; 80053; 81001; 85025; 87086; 96365; 96375; 99284; J0131; J2405

== ENCOUNTER → 2024-07-26 | Outpatient (REF) | payer MEDICARE ==
[~2024-07-26] MED LIST changes: +HYDR-3713 PO
[2024-07-26 17:42] LABS: APPEARANCE, URINE HAZY (CLEAR); BACTERIA, URINE AUTO NEGATIVE (NEGATIVE); BILIRUBIN, URINE AUTO NEGATIVE (NEGATIVE); BLOOD, URINE BLOOD NEGATIVE (NEGATIVE); COLOR, URINE YELLOW (YELLOW); GLUCOSE, URINE (UA) AUTO NEGATIVE (NEGATIVE); KETONE, URINE AUTO TRACE mg/dL (NEGATIVE); LEUKOCYTE ESTERASE, URINE AUTO 1+ (NEGATIVE); MUCUS, URINE SMALL (NEGATIVE); NITRITE, URINE AUTO NEGATIVE (NEGATIVE); PROTEIN, URINE AUTO NEGATIVE (NEGATIVE); RBC, URINE AUTO 1 /HPF (0-3); SPECIFIC GRAVITY URINE AUTO 1.012 (1.002-1.035); SQUAMOUS EPITHELIAL CELL UR AU 2 /HPF (0-6); UROBILINOGEN, URINE AUTO 0.2 mg/dL (0.0-2.0); WBC, URINE AUTO 4 /HPF (0-3)
== END ==
LOC: M SMT 17:07
PROVIDERS: ATTEND Nurse Practitioner Family
DX: N20.0 Calculus of kidney (principal)

== ENCOUNTER → 2024-07-27 | Outpatient (CLI) | payer MEDICARE | LOC: M WHC 12:58 | PROVIDERS: ATTEND Nurse Practitioner Family | DX: N20.0 Calculus of kidney (principal) ==

== ENCOUNTER → 2024-07-31 | Outpatient (REF) | payer MEDICARE ==
[2024-07-31 17:43] LABS: APPEARANCE, URINE HAZY (CLEAR); BACTERIA, URINE AUTO NEGATIVE (NEGATIVE); BILIRUBIN, URINE AUTO NEGATIVE (NEGATIVE); BLOOD, URINE BLOOD 2+ (NEGATIVE); COLOR, URINE YELLOW (YELLOW); GLUCOSE, URINE (UA) AUTO NEGATIVE (NEGATIVE); KETONE, URINE AUTO NEGATIVE (NEGATIVE); LEUKOCYTE ESTERASE, URINE AUTO NEGATIVE (NEGATIVE); MUCUS, URINE SMALL (NEGATIVE); NITRITE, URINE AUTO NEGATIVE (NEGATIVE); PROTEIN, URINE AUTO NEGATIVE (NEGATIVE); RBC, URINE AUTO 26 /HPF (0-3); SPECIFIC GRAVITY URINE AUTO 1.021 (1.002-1.035); SQUAMOUS EPITHELIAL CELL UR AU 0 /HPF (0-6); UROBILINOGEN, URINE AUTO 0.2 mg/dL (0.0-2.0); WBC, URINE AUTO 0 /HPF (0-3)
== END ==
LOC: M SMT 16:42
PROVIDERS: ATTEND Nurse Practitioner Family
DX: R30.0 Dysuria (principal)

== ENCOUNTER → 2024-08-03 | Outpatient (CLI) | payer MEDICARE ==
[2024-08-03 18:16] LABS: BILIRUBIN,TOTAL 0.5 MG/DL (0.3-1.2); CALCIUM LEVEL 9.8 MG/DL (8.3-10.6); CREATININE FOR GFR 0.82 MG/DL (0.55-1.30); POTASSIUM SERUM 3.9 MMOL/L (3.5-5.1); TOTAL PROTEIN 6.8 G/DL (5.7-8.2)
[2024-08-03 18:22] LABS: BASO % 0.6 % (0.0-1.0); EOS # 0.1 10^3/uL (0.0-0.5); EOS % 0.9 % (0.0-3.0); HEMATOCRIT 38.5 % (36.0-47.0); HEMOGLOBIN 12.8 g/dl (12.0-15.5); LYMPH # 2.5 10^3/uL (1.5-5.0); LYMPH % 39.9 % (24.0-44.0); MEAN CORPUSCULAR HEMOGLOBIN 32.6 pg (27.0-33.0); MEAN CORPUSCULAR HGB CONC 33.2 g/dl (32.0-36.5); MONO # 0.5 10^3/uL (0.0-0.8); MONO % 7.3 % (2.0-8.0); NEUTROPHILS # 3.2 10^3/uL (1.5-8.5); NEUTROPHILS % 51.1 % (36.0-66.0); PLATELET COUNT, AUTOMATED 344 10^3/uL (150-450); RED BLOOD COUNT 3.93 10^6/uL (4.00-5.40); WHITE BLOOD COUNT 6.3 10^3/uL (4.0-10.0)
[2024-08-04 17:25] LABS: APPEARANCE, URINE CLEAR (CLEAR); BACTERIA, URINE AUTO NEGATIVE (NEGATIVE); BILIRUBIN, URINE AUTO NEGATIVE (NEGATIVE); BLOOD, URINE BLOOD NEGATIVE (NEGATIVE); COLOR, URINE YELLOW (YELLOW); GLUCOSE, URINE (UA) AUTO NEGATIVE (NEGATIVE); KETONE, URINE AUTO NEGATIVE (NEGATIVE); LEUKOCYTE ESTERASE, URINE AUTO NEGATIVE (NEGATIVE); NITRITE, URINE AUTO NEGATIVE (NEGATIVE); PROTEIN, URINE AUTO NEGATIVE (NEGATIVE); RBC, URINE AUTO 1 /HPF (0-3); SQUAMOUS EPITHELIAL CELL UR AU 1 /HPF (0-6); UROBILINOGEN, URINE AUTO 0.2 mg/dL (0.0-2.0); WBC, URINE AUTO 0 /HPF (0-3)
== END ==
LOC: M WUC 14:00
PROVIDERS: ATTEND Family Medicine
DX: R10.814 Left lower quadrant abdominal tenderness (principal); R39.15 Urgency of urination; R31.29 Other microscopic hematuria

== ENCOUNTER → 2024-12-27 | Outpatient (REF) | payer MEDICARE ==
[2024-12-27 15:48] LABS: APPEARANCE, URINE HAZY (CLEAR); BACTERIA, URINE AUTO 1+ (NEGATIVE); BILIRUBIN, URINE AUTO NEGATIVE (NEGATIVE); BLOOD, URINE BLOOD 1+ (NEGATIVE); GLUCOSE, URINE (UA) AUTO NEGATIVE (NEGATIVE); KETONE, URINE AUTO TRACE mg/dL (NEGATIVE); LEUKOCYTE ESTERASE, URINE AUTO 2+ (NEGATIVE); MUCUS, URINE SMALL (NEGATIVE); NITRITE, URINE AUTO POSITIVE (NEGATIVE); PROTEIN, URINE AUTO 1+ mg/dL (NEGATIVE); RBC, URINE AUTO 7 /HPF (0-3); SPECIFIC GRAVITY URINE AUTO 1.015 (1.002-1.035); SQUAMOUS EPITHELIAL CELL UR AU 1 /HPF (0-6); UROBILINOGEN, URINE AUTO 4.0 mg/dL (0.0-2.0); WBC, URINE AUTO TNTC /HPF (0-3)
== END ==
LOC: M SMT 15:11
PROVIDERS: ATTEND Nurse Practitioner Family
DX: R39.9 Unspecified symptoms and signs involving the genitourinary system (principal)

== ENCOUNTER → 2025-01-16 | Outpatient (CLI) | payer MEDICARE | LOC: M WHC 13:16 | PROVIDERS: ATTEND Obstetrics & Gynecology | DX: Z12.31 Encounter for screening mammogram for malignant neoplasm of breast (principal); R92.323 Mammographic fibroglandular density, bilateral breasts ==

== ENCOUNTER → 2025-03-01 | Outpatient (CLI) | payer MEDICARE | LOC: M RAD 13:28 | PROVIDERS: ATTEND Nurse Practitioner Family | DX: Z09 Encounter for follow-up examination after completed treatment for conditions other than malignant neoplasm (principal); Z87.442 Personal history of urinary calculi ==